=== PATIENT | female | born 2000 | race Caucasian/White ===

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

== ENCOUNTER → 2020-09-01 | Outpatient (CLI) | payer OTHER ==
[~2020-09-01] MED LIST changes: +KEFLEX500 M1 PO
== END | disposition home or self-care (01) ==
LOC: COVID19 04:40
PROVIDERS: ATTEND Nurse Practitioner Family
DX: Z20.828 Contact with and (suspected) exposure to other viral communicable diseases (principal)

== ENCOUNTER → 2020-09-06 | Outpatient (CLI) | payer OTHER | END | disposition home or self-care (01) | LOC: RAD 15:32 | PROVIDERS: ATTEND Nurse Practitioner Family | DX: R06.02 Shortness of breath (principal); R05 Cough ==

== ENCOUNTER 2020-09-08 17:33 | Emergency (ER) | payer OTHER ==
[~2020-09-08] VITALS: Wt 117.9 kg
[~2020-09-08 17:33] MED LIST changes: -KEFLEX500 M1 PO
[2020-09-08 19:26] LABS: BILIRUBIN Negative (Negative); BLOOD Trace-Lysed (Negative); CLARITY Cloudy (Clear); COLOR Yellow (Yellow); GLUCOSE Negative (Negative); KETONE Negative (Negative); LEUKO ESTERASE 2+ (Negative); NITRITE Negative (Negative); SPECIFIC GRAVITY 1.025 (1.001-1.030)
[2020-09-08 19:41] LABS: BACTERIA 2+; EPITHELIAL CELLS 21-30; WBC 31-40 wbc/hpf (0-5)
[2020-09-08] MEDS ORDERED: KEFLEX500 M1 PO (19:43)
== END 2020-09-08 19:23 | disposition home or self-care (01) ==
LOC: ED 17:33
PROVIDERS: Physician Assistant
DX: N39.0 Urinary tract infection, site not specified (principal); Z79.899 Other long term (current) drug therapy; Z20.828 Contact with and (suspected) exposure to other viral communicable diseases

== ENCOUNTER → 2020-10-18 | Outpatient (CLI) | payer OTHER ==
[~2020-10-18] MED LIST changes: +KEFLEX500 M1 PO
== END | disposition home or self-care (01) ==
LOC: COVID19 15:04
PROVIDERS: ATTEND Internal Medicine
DX: Z20.828 Contact with and (suspected) exposure to other viral communicable diseases (principal)

== ENCOUNTER → 2021-11-30 | Outpatient (CLI) | payer OTHER | END | disposition home or self-care (01) | LOC: COVID19 17:49 | PROVIDERS: ATTEND Internal Medicine | DX: U07.1 COVID-19 (principal) ==

== ENCOUNTER 2022-02-23 22:48 | Emergency (ER) | payer OTHER ==
[~2022-02-23] VITALS: Ht 162.5 cm; Wt 122.5 kg
== END 2022-02-24 01:57 | disposition home or self-care (01) ==
LOC: ED 22:48
DX: S93.401A Sprain of unspecified ligament of right ankle, initial encounter (principal); M79.671 Pain in right foot; M79.604 Pain in right leg; X50.1XXA Overexertion from prolonged static or awkward postures, initial encounter; Y93.89 Activity, other specified; Y92.89 Other specified places as the place of occurrence of the external cause; Y99.8 Other external cause status

== ENCOUNTER → 2022-02-28 | Outpatient (CLI) | payer OTHER | END | disposition home or self-care (01) | LOC: US 14:00 | PROVIDERS: ATTEND Podiatrist | DX: R60.9 Edema, unspecified (principal); M79.604 Pain in right leg ==

== ENCOUNTER 2022-05-16 12:16 | Emergency (ER) | payer OTHER ==
[~2022-05-16] VITALS: Ht 162.5 cm; Wt 131.5 kg
[2022-05-16] MEDS ORDERED: PIRMELLA 1-351 EACH PO (12:51)
== END 2022-05-16 15:49 | disposition home or self-care (01) ==
LOC: ED 12:16
DX: S92.351A Displaced fracture of fifth metatarsal bone, right foot, initial encounter for closed fracture (principal); Z79.899 Other long term (current) drug therapy; X50.1XXA Overexertion from prolonged static or awkward postures, initial encounter; Y93.89 Activity, other specified; Y92.89 Other specified places as the place of occurrence of the external cause; Y99.8 Other external cause status

== ENCOUNTER 2023-01-16 09:59 | Emergency (ER) | payer OTHER ==
[~2023-01-16] VITALS: Wt 122.5 kg
[~2023-01-16 09:59] MED LIST changes: +PIRMELLA 1-351 EACH PO
== END 2023-01-16 13:06 | disposition left against medical advice (07) ==
LOC: ED 09:59
DX: J00 Acute nasopharyngitis [common cold] (principal); Z53.21 Procedure and treatment not carried out due to patient leaving prior to being seen by health care provider